=== PATIENT | female | born 1955 | race African-American/Black ===

== ENCOUNTER 2022-03-02 01:00 | Emergency (ER) | payer MEDICARE, MEDICAID ==
[~2022-03-02] VITALS: Ht 180.3 cm; Wt 97.5 kg
[2022-03-02 01:20] VITALS: BP_SYST 169
[2022-03-02] MEDS ORDERED: MORPHINE 4 MG INJ. 4 MG/ML VIAL IM ONE (01:45)
[2022-03-02] MEDS ORDERED: IBUP-1969 PO (05:09)
[2022-03-02] MEDS ORDERED: ACET1TAB93 PO (05:09)
[2022-03-02 05:48] VITALS: BP_SYST 156
== END 2022-03-02 05:48 | disposition home or self-care (01) ==
LOC: SED 01:00
DX: S82.54XA Nondisplaced fracture of medial malleolus of right tibia, initial encounter for closed fracture (principal); M25.461 Effusion, right knee; W17.89XA Other fall from one level to another, initial encounter; Y93.89 Activity, other specified; Y92.89 Other specified places as the place of occurrence of the external cause; Y99.8 Other external cause status
CPT/HCPCS: 29515; 73552; 73564; 73590; 73610; 73630; 96372; 99284; J2270

== ENCOUNTER 2022-12-12 12:18 | Emergency (ER) | payer MEDICARE, MEDICAID ==
[~2022-12-12] VITALS: Ht 180.3 cm; Wt 93.4 kg
[2022-12-12 12:18] VITALS: BP_SYST 148
[~2022-12-12 12:18] MED LIST: IBUP-1969 PO
--- NOTE | 2022-12-12 12:20 | NUR ---
Patient triaged and placed in waiting room. VSS and patient appears in no acute distress at this time. Accompanied by FAMILY, awaiting available bed, and MD notified of need for MSE.
[2022-12-12] MEDS ORDERED: LIDOCAINE 1% 10 MG/ML, 20 ML MDV SUBCUT ONE (15:00)
[2022-12-12] MEDS ORDERED: fentaNYL CITRATE/PF 100 MCG/2 ML AMP IM ONE (15:00)
--- NOTE | 2022-12-12 16:00 | NUR ---
RECEIVED PT FROM MAG MCKEON. PT HAS PERINEAL ABCESS. PT IS AAOX4. ON R/A. DENIES N/V/D/C. DISTAL PULSES NORMAL, SKIN WARM. STATES PAIN IS 8/10.
--- NOTE | 2022-12-12 16:00 | NUR ---
DR. COMBS AT BEDSIDE TO ASSESS PT.
--- NOTE | 2022-12-12 16:08 | NUR ---
FENTANYL 75MCG IM GIVEN TO LEFT DELTOID. SITE COVERED WITH BANDAGE.
--- NOTE | 2022-12-12 16:18 | NUR ---
DR. COMBS AT BEDSIDE TO PREFORM I AND D.
[2022-12-12] MEDS ORDERED: IBUP-1969 PO (16:26)
[2022-12-12] MEDS ORDERED: SULF1TAB47 PO (16:26)
[2022-12-12] MEDS ORDERED: CEPH-548 PO (16:26)
[2022-12-12] MEDS ORDERED: HYDR-3917 PO (16:26)
--- NOTE | 2022-12-12 16:40 | NUR ---
PERINEAL WOUND DRAINED AND PACKED WITH IODOFOAM. OCCLUSIVE DRESSING PLACED. PT TOLERATED PROCEDURE WELL.
[2022-12-12 16:49] VITALS: BP_SYST 133
--- NOTE | 2022-12-12 16:52 | NUR ---
Patient given written and verbal discharge instructions and verbalizes understanding. ER MD discussed with patient the results and treatment provided. Patient in stable condition. ID arm band removed. IV catheter removed intact and dressing applied, no active bleeding. Rx of CEPHALEXIN, NORCO, IBUPROFEN, BACTRIM given. Patient educated on pain management and to follow up with PMD. Pain Scale 3/10. Opportunity for questions provided and answered. Medication side effect fact sheet provided.
== END 2022-12-12 16:52 | disposition home or self-care (01) ==
LOC: SED 12:18
DX: L02.415 Cutaneous abscess of right lower limb (principal); E11.9 Type 2 diabetes mellitus without complications; I10 Essential (primary) hypertension; Z79.899 Other long term (current) drug therapy
CPT/HCPCS: 99283; 10060; 82962; 96372; J2001; J3010

== ENCOUNTER 2022-12-14 10:55 | Emergency (ER) | payer MEDICARE, MEDICAID ==
[~2022-12-14] VITALS: Ht 180.3 cm; Wt 93.4 kg
[~2022-12-14 10:55] MED LIST changes: +CEPH-548 PO; +HYDR-3917 PO; +SULF1TAB47 PO
[2022-12-14 11:04] VITALS: BP_SYST 131
--- NOTE | 2022-12-14 11:06 | NUR ---
Placed in room 04 . Placed on security monitor, blood pressure machine and pulse oximeter. To gown for exam. Side rails up. Report given to LINDA AMEZCUA.
--- NOTE | 2022-12-14 11:15 | NUR ---
PT RECEIVED, CARE ASSUMED. PT A/OX4. PT PRESENTS SELF TO ER FOR WOUND EVALUATION. DR. SERVIN AT BED SIDE.
[2022-12-14] MEDS ORDERED: HYDROcodone/ACETAMIN 5-325 MG TAB (NORCO/ VICODIN) PO ONE (11:30)
[2022-12-14 13:12] VITALS: BP_SYST 137
--- NOTE | 2022-12-14 13:12 | NUR ---
Patient given written and verbal discharge instructions and verbalizes understanding. ER MD discussed with patient the results and treatment provided. Patient in stable condition. ID arm band removed. IV catheter removed intact and dressing applied, no active bleeding. Patient educated on pain management and to follow up with PMD. Pain Scale . Opportunity for questions provided and answered. Medication side effect fact sheet provided.
== END 2022-12-14 13:12 | disposition home or self-care (01) ==
LOC: SED 10:55
DX: L03.115 Cellulitis of right lower limb (principal); R22.41 Localized swelling, mass and lump, right lower limb; E11.9 Type 2 diabetes mellitus without complications; I10 Essential (primary) hypertension; Z79.899 Other long term (current) drug therapy
CPT/HCPCS: 99283